=== PATIENT | male | born 1990 | race Caucasian/White ===

== ENCOUNTER 2017-07-04 21:48 | Emergency (ER) | payer MEDICAID ==
[~2017-07-04] VITALS: Ht 188 cm; Wt 160.8 kg
[~2017-07-04 21:48] MED LIST: CLIN-80 PO; NO HOME MEDS; PHEN120S PO; POLY10DR LEFTEYE
[2017-07-04 23:42] LABS: BASOPHILS % (AUTO) 0.3 % (0-1); EOSINOPHILS # (AUTO) 0.5 X10'3 (0-0.9); EOSINOPHILS % (AUTO) 3.5 % (0-6); HEMATOCRIT 41.5 % (42.0-52.0); HEMOGLOBIN 14.2 g/dl (14.0-17.9); LYMPHOCYTES # (AUTO) 2.5 X10'3 (1.1-4.8); LYMPHOCYTES % (AUTO) 18.3 % (21-51); MEAN CORPUSCULAR HEMOGLOBIN 28.2 PG (27.0-31.0); MEAN CORPUSCULAR HGB CONC 34.2 % (33.0-36.5); MEAN CORPUSCULAR VOLUME 82.6 FL (78-98); MEAN PLATELET VOLUME 8.1 FL (7.4-10.4); MONOCYTES # (AUTO) 0.9 X10'3 (0-0.9); MONOCYTES % (AUTO) 6.5 % (2-12); NEUTROPHILS # (AUTO) 9.9 X10'3 (1.8-7.7); NEUTROPHILS % (AUTO) 71.4 % (42-75); PLATELET COUNT 267 X10'3 (140-440); RED BLOOD COUNT 5.02 X10'6 (4.70-6.10); RED CELL DISTRIBUTION WIDTH 13.1 % (11.5-14.5); WHITE BLOOD COUNT 13.8 X10'3 (4.5-11.0)
[2017-07-04 23:53] LABS: PARTIAL THROMBOPLASTIN TIME 27 SECONDS (22-32); PROTHROMBIN TIME 10.3 SECONDS (9.0-12.0)
[2017-07-04 23:57] LABS: ALANINE AMINOTRANSFERASE 40 U/L (12-78); ALBUMIN 3.6 G/DL (3.4-5.0); ALBUMIN/GLOBULIN RATIO 0.8 (1.1-1.5); ALKALINE PHOSPHATASE 43 IU/L (46-116); ANION GAP 8 (8-16); ASPARTATE AMINO TRANSFERASE 16 U/L (10-37); BILIRUBIN,TOTAL 0.3 MG/DL (0.1-1.0); BLOOD UREA NITROGEN 13 MG/DL (7-18); BUN/CREATININE RATIO 13.7 (5.4-32.0); CHLORIDE 102 MMOL/L (99-107); CREATININE 0.95 MG/DL (0.60-1.10); GLUCOSE 100 MG/DL (70-104); POTASSIUM 3.8 MMOL/L (3.5-5.1); SODIUM 139 MMOL/L (135-145); TOTAL CARBON DIOXIDE 28.7 MMOL/L (24-32); TOTAL PROTEIN 8.1 G/DL (6.4-8.2); eGFR > 90 ML/MIN
[2017-07-05] MEDS ORDERED: normal saline 1000ML IV soln IVB ONE (00:20)
[2017-07-05 00:36] LABS: CLARITY,URINE Clear (Clear); COLOR,URINE Yellow (Yellow); GLUCOSE, URINE Negative (Neg); KETONES,URINE Negative (Neg); LEUKOCYTE ESTERASE ,URINE Trace (Neg); NITRITES, URINE Negative (Neg); OCCULT BLOOD,URINE Negative (Neg); PROTEIN,URINE Negative (Neg)
[2017-07-05 00:41] LABS: UA COLLECTION TYPE CLN CATCH MIDSTREAM
[2017-07-05 00:42] LABS: BACTERIA,URINE NONE SEEN /HPF (Neg); RBC,URINE NONE SEEN /HPF (0-2); SQUAMOUS EPITHELIAL CELL,UR FEW /LPF (FEW); WBC,URINE 0-4 /HPF (0-4)
[2017-07-05 01:34] VITALS: BP 124/88
== END 2017-07-05 01:36 | disposition home or self-care (01) ==
LOC: ER 21:48
DX: J11.1 Influenza due to unidentified influenza virus with other respiratory manifestations (principal); F12.10 Cannabis abuse, uncomplicated; F17.200 Nicotine dependence, unspecified, uncomplicated; Z88.0 Allergy status to penicillin; Z79.899 Other long term (current) drug therapy
CPT/HCPCS: 36415; 71045; 80053; 81001; 83605; 84145; 85025; 85610; 85730; 87040; 87088; 96360; 99285; J7030

== ENCOUNTER 2018-07-29 08:46 | Observation (INO) | payer MEDICAID ==
[~2018-07-29] VITALS: Ht 188 cm; Wt 159.1 kg
[~2018-07-29 08:46] MED LIST changes: -CLIN-80 PO; +CLIN-96 PO
[2018-07-29] MEDS ORDERED: morphine 4 MG/ML inj SYRINge IV PRN ×3 (09:15→23:10)
[2018-07-29] MEDS ORDERED: ondansetron/PF 4mg/2ml inj IV ONE (09:15)
[2018-07-29] MEDS ORDERED: normal saline 1000ML IV soln IVB ONE (09:15)
[2018-07-29] MEDS ORDERED: CefTRIAXone 2gm/D5W 50ml 50 ML IV ONE (09:15)
--- NOTE | 2018-07-29 09:36 | NUR ---
LAST FOOD OR DRINK WAS AT 1AM THIS MORNING.
[2018-07-29 09:38] LABS: BASOPHILS # (AUTO) 0.1 X10'3 (0-0.2); BASOPHILS % (AUTO) 0.3 % (0-1); EOSINOPHILS # (AUTO) 0.9 X10'3 (0-0.9); EOSINOPHILS % (AUTO) 5.2 % (0-6); HEMOGLOBIN 14.6 g/dl (14.0-17.9); LYMPHOCYTES # (AUTO) 2.2 X10'3 (1.1-4.8); MEAN CORPUSCULAR HEMOGLOBIN 28.3 PG (27.0-31.0); MEAN CORPUSCULAR HGB CONC 33.3 g/dL (33.0-36.5); MEAN CORPUSCULAR VOLUME 85.3 FL (78-98); MONOCYTES % (AUTO) 5.5 % (2-12); NEUTROPHILS # (AUTO) 13.2 X10'3 (1.8-7.7); PLATELET COUNT 231 X10'3 (140-440); RED BLOOD COUNT 5.17 X10'6 (4.70-6.10); RED CELL DISTRIBUTION WIDTH 13.1 % (11.5-14.5); WHITE BLOOD COUNT 17.3 X10'3 (4.5-11.0)
[2018-07-29 09:52] LABS: ALANINE AMINOTRANSFERASE 52 U/L (12-78); ALBUMIN 3.5 G/DL (3.4-5.0); ALBUMIN/GLOBULIN RATIO 0.9 (1.1-1.5); ALKALINE PHOSPHATASE 43 IU/L (46-116); ANION GAP 7 (8-16); ASPARTATE AMINO TRANSFERASE 19 U/L (10-37); BILIRUBIN,TOTAL 0.3 MG/DL (0.1-1.0); BLOOD UREA NITROGEN 13 MG/DL (7-18); BUN/CREATININE RATIO 14.8 (5.4-32.0); CALCIUM 8.9 MG/DL (8.5-10.1); CHLORIDE 104 MMOL/L (99-107); CREATININE 0.88 MG/DL (0.60-1.10); GLUCOSE 125 MG/DL (70-104); LIPASE 283 U/L (73-393); POTASSIUM 4.2 MMOL/L (3.5-5.1); SODIUM 139 MMOL/L (135-145); TOTAL CARBON DIOXIDE 27.6 MMOL/L (24-32); TOTAL PROTEIN 7.3 G/DL (6.4-8.2); eGFR > 90 ML/MIN
--- NOTE | 2018-07-29 09:53 | NUR ---
PT AWARE OF NEED FOR URINE. STATES HE IS NOT ABLE TO GO AT THIS TIME. PT GIVEN A URINAL.
[2018-07-29 09:58] LABS: TOTAL CELLS COUNTED 100
[2018-07-29 09:59] LABS: PLATELET ESTIMATE NORMAL
[2018-07-29 10:37] LABS: CLARITY,URINE CLEAR (Clear); COLOR,URINE YELLOW (Yellow); GLUCOSE, URINE NEGATIVE (Neg); KETONES,URINE NEGATIVE (Neg); LEUKOCYTE ESTERASE ,URINE NEGATIVE (Neg); NITRITES, URINE NEGATIVE (Neg); OCCULT BLOOD,URINE TRACE-LYSED (Neg); PH,URINE 5.5 (4.8-8.0); PROTEIN,URINE NEGATIVE (Neg); UROBILINOGEN,URINE 0.2 E.U/dL (0.2-1.0)
[2018-07-29 10:38] LABS: UA COLLECTION TYPE CLN CATCH MIDSTREAM
[2018-07-29 10:52] LABS: BACTERIA,URINE NONE SEEN /HPF (Neg); MUCUS STRANDS NONE SEEN /LPF (Neg); RBC,URINE NONE SEEN /HPF (0-2); SQUAMOUS EPITHELIAL CELL,UR NONE SEEN /LPF (FEW); WBC,URINE NONE SEEN /HPF (0-4)
[2018-07-29] MEDS ORDERED: magnesium hydroxide 30ml (MOM) UD suspension PO PRN (12:45)
[2018-07-29] MEDS ORDERED: acetaminophen 325mg tablet PO PRN (12:45)
[2018-07-29] MEDS ORDERED: mag hydrox/Alum hydrox/simeth 30ml oral suspension PO PRN (12:45)
[2018-07-29] MEDS ORDERED: morphine 2 MG/ML inj. syringe IV PRN (12:45)
[2018-07-29] MEDS: normal saline 1000ml 1,000 ML IV SCH ×2 (13:15→23:23)
--- NOTE | 2018-07-29 15:55 | NUR ---
Received report from TERI Cooper. Awaiting patient arrival to room 354a.
[2018-07-29] MEDS: morphine 2 MG/ML inj. syringe IV PRN ×2 (16:15→21:48)
[2018-07-29] MEDS: ondansetron/PF 4mg/2ml inj IV PRN ×2 (16:20→22:11)
--- NOTE | 2018-07-29 16:25 | NUR ---
patient arrived to room 354a via gurney accompanied by x1 staff and visitor. patient is a&o and in no apparent distress. He does c/o pain to his right upper abd. morphine given as ordered. oriented patient to room and call light. call light placed within patient's reach. bed is low and locked.
[2018-07-29 16:26] VITALS: BP 134/96
--- NOTE | 2018-07-29 18:34 | NUR ---
Problems reprioritized. Patient report given, questions answered & plan of care reviewed with Markos Parada and MARKOS Sorensen.
--- NOTE | 2018-07-29 18:45 | NUR ---
Received report from Shadia WILLIAMSON pt is awake and alert on RA, in no apparent distress, pt is curious if he is going to be having surgery or not tonight, call light and items of freq use within reach.
[2018-07-29 19:00] VITALS: BP 100/56
--- NOTE | 2018-07-29 19:04 | NUR ---
Patient in room [facility] 354. I have received report from Shadia WILLIAMSON and had the opportunity to ask questions and assume patient carewith Karma WILLIAMSON and Franchesca WILLIAMSON
[2018-07-29] MEDS ORDERED: ringers solution, lacted 1,000 ML IV SCH (23:09)
[2018-07-29] MEDS ORDERED: ondansetron/PF 4mg/2ml inj IV PRN (23:10)
[2018-07-29] MEDS ORDERED: fentaNYL/PF 50MCG/1 ML 2ML syringe IV PRN ×2 (23:10)
[2018-07-29] MEDS ORDERED: labetalol 20mg/4ml (5mg/ml) syringe IV PRN (23:10)
[2018-07-29] MEDS ORDERED: hydrALAZINE 20mg/ml inj. IV PRN (23:10)
[2018-07-29 23:23] VITALS: BP 107/53
[2018-07-29] MEDS: metroNIDAZOLE-Flagyl 500mg/NS 100 ML IV SCH (23:23)
[2018-07-29 23:30] VITALS: BP 107/53
[2018-07-29] MEDS ORDERED: BUPIVAcaine/PF 2.5 mg/ml (0.25%) 30ml vial ONE (23:39)
[2018-07-29] MEDS ORDERED: ceFAZolin 1000mg inj ONE (23:39)
[2018-07-30] VITALS (13 sets, daily range): BP systolic 104–147; BP diastolic 57–97
[2018-07-30] MEDS ORDERED: propofol inj 20 ML IV ONE (01:33)
[2018-07-30] MEDS ORDERED: rocuronium 10mg/ml inj IV ONE (01:33)
[2018-07-30] MEDS ORDERED: dexamethasone sod phosphate 10mg/ml inj ONE (01:34)
[2018-07-30] MEDS ORDERED: fentaNYL/PF 50MCG/1 ML 2ML syringe ONE ×2 (01:34→01:58)
[2018-07-30] MEDS ORDERED: sevoflurane 250ml liquid IH ONE (01:34)
[2018-07-30] MEDS ORDERED: neostigmine methylsulfate 1 MG/ML 10ml vial ONE (01:34)
[2018-07-30] MEDS ORDERED: LIDOcaine 1%/PF 5ML 10 MG/ML VIAL ONE (01:44)
[2018-07-30] MEDS ORDERED: ondansetron/PF 4mg/2ml inj ONE (01:44)
[2018-07-30] MEDS ORDERED: glycopyrrolate 0.2mg/ml inj ONE (02:26)
[2018-07-30] MEDS ORDERED: ondansetron/PF 4mg/2ml inj IV PRN (02:35)
[2018-07-30] MEDS ORDERED: HYDROcodone/acetaminophen 10/325mg tab PO PRN (02:35)
--- NOTE | 2018-07-30 02:40 | NUR ---
Received from OR via , accompanied by Anesthesiologist and report given by Anesthesiolgist. PATIENT ARRIVED TO PACU VIA HOSPITAL BED, 10LMASK 02 SAT 99%, VSS CHARTED, ABD SOFT TO TOUCH LAP SITES X3 WITH BAND-AIDES CDI. SCDS IN PLACE, 20 GAUGE PIV TO LEFT LOWER EXTREMITY, IVF INFUSING ORDERED, WILL CONTINUE TO MONITOR.
[2018-07-30] MEDS ORDERED: ketorolac trometh. 30mg/ml inj. IV ONE (03:00)
--- NOTE | 2018-07-30 03:10 | NUR ---
PATIENT TRANSFER CRITERIA MET, REPORT CALLED TO WILDER WILLIAMSON ALL QUESTIONS AND CONCERNS ADDRESSED. PATIENT TRANSFERRED VIA HOSPITAL BED, VSS CHARTED, ABD SOFT TO TOUCH, LAP SITES X3, CDI.
--- NOTE | 2018-07-30 03:42 | NUR ---
pt arrived back from OR in hospital bed, on 5L of O2, pt stating 9/10 pain, pt has 3 lap sites CDI, Abd soft to touch. Lungs clear. will continue to monitor pt.
[2018-07-30] MEDS: normal saline 1000ml 1,000 ML IV SCH (06:01)
[2018-07-30 06:06] LABS: BASOPHILS % (AUTO) 0.3 % (0-1); EOSINOPHILS # (AUTO) 0.2 X10'3 (0-0.9); HEMATOCRIT 41.7 % (42.0-52.0); LYMPHOCYTES # (AUTO) 1.3 X10'3 (1.1-4.8); LYMPHOCYTES % (AUTO) 12.2 % (21-51); MEAN CORPUSCULAR HEMOGLOBIN 28.5 PG (27.0-31.0); MEAN CORPUSCULAR HGB CONC 33.6 g/dL (33.0-36.5); MEAN CORPUSCULAR VOLUME 84.8 FL (78-98); MEAN PLATELET VOLUME 8.2 FL (7.4-10.4); MONOCYTES # (AUTO) 0.3 X10'3 (0-0.9); MONOCYTES % (AUTO) 2.4 % (2-12); NEUTROPHILS # (AUTO) 8.8 X10'3 (1.8-7.7); NEUTROPHILS % (AUTO) 83.1 % (42-75); PLATELET COUNT 224 X10'3 (140-440); RED BLOOD COUNT 4.92 X10'6 (4.70-6.10); RED CELL DISTRIBUTION WIDTH 13.5 % (11.5-14.5); WHITE BLOOD COUNT 10.6 X10'3 (4.5-11.0)
[2018-07-30 06:14] LABS: ALBUMIN 3.3 G/DL (3.4-5.0); ANION GAP 7 (8-16); BLOOD UREA NITROGEN 12 MG/DL (7-18); BUN/CREATININE RATIO 11.2 (5.4-32.0); CALCIUM 8.3 MG/DL (8.5-10.1); CHLORIDE 104 MMOL/L (99-107); CREATININE 1.07 MG/DL (0.60-1.10); GLUCOSE 126 MG/DL (70-104); POTASSIUM 4.3 MMOL/L (3.5-5.1); SODIUM 138 MMOL/L (135-145); TOTAL CARBON DIOXIDE 26.8 MMOL/L (24-32); eGFR 83 ML/MIN
--- NOTE | 2018-07-30 06:22 | NUR ---
Gave report to Shadia WILLIAMSON with Prudence RN pt is awake on 5L of O2 via NC, pt is wanting a drink of water, grabbed pt a straw.
--- NOTE | 2018-07-30 06:26 | NUR ---
Patient in room [facility] 354. I have received report from TERI HDZ AND TERI LR and had the opportunity to ask questions and assume patient care.
--- NOTE | 2018-07-30 06:26 | NUR ---
Problems reprioritized. Patient report given Shadia WILLIAMSON, questions answered & plan of care reviewed with Karma WILLIAMSON and Franchesca WILLIAMSON .
[2018-07-30] MEDS ORDERED: levoFLOXACIN-Levaquin 750MG/D5 150 ML IV SCH (08:00)
[2018-07-30] MEDS: metroNIDAZOLE-Flagyl 500mg/NS 100 ML IV SCH (08:05)
[2018-07-30] MEDS ORDERED: HYDR-4383 PO (11:35)
--- NOTE | 2018-07-30 11:59 | NUR ---
Per Dr. Robledo, patient will not be dc'd today due to not passing gas yet. Dr. Herr notified.
--- NOTE | 2018-07-30 14:58 | NUR ---
Patient is passing gas. Patient tolerating full liquid diet. Dr. Robledo notified and he states okay to dc patient.
--- NOTE | 2018-07-30 15:36 | NUR ---
Patient A&O in no apparent distress. Discussed with patient discharge teaching and new prescription for norco. Patient verbalizes understanding of teaching. Patient dc'd with all personal belongings via wheelchair accompanied by x1 staff and mother.
== END 2018-07-30 15:44 | disposition home or self-care (01) ==
LOC: ER 08:46 → SUR 3N 16:38
PROVIDERS: ADMIT Family Medicine; ATTEND Family Medicine
DX: K35.80 Unspecified acute appendicitis (principal); F17.200 Nicotine dependence, unspecified, uncomplicated; Z88.0 Allergy status to penicillin
CPT/HCPCS: 36415; 44970; 74176; 80048; 80053; 81001; 83690; 85025; 85610; 96365; 96366; 96367; 96375; 96376; 99284; G0378; J0690; J0696; J1100; J1885; J1956; J2001; J2270; J2405; J2704; J2710; J3010; J3490; J7030; J7120; A4315; A7000